=== PATIENT | male | born 1950 | race Caucasian/White ===

== ENCOUNTER 2016-05-27 08:51 | Outpatient (CLI) | payer MEDICARE ==
[2016-05-27 10:06] LABS: ALT (SGPT) 13 U/L (0-55); AST (SGOT) 19 U/L (5-34); Albumin 4.3 g/dL (3.4-4.8); Alkaline Phosphatase 69 U/L (40-150); Anion Gap 18 mmol/L (10-20); BUN (Urea Nitrogen) 18 mg/dL (8.4-25.7); Bilirubin, Total 1.1 mg/dL (0.2-1.2); Calc. Creatinine Clearance 0 mL/min (70-130); Calcium 9.6 mg/dL (7.8-10.44); Carbon Dioxide 26 mmol/L (23-31); Chloride 102 mmol/L (98-107); Cholesterol 133 mg/dL (< 200 Desired); Estimated GFR-MDRD 74; Glucose 108 mg/dL (80-115); HDL Cholesterol 60 mg/dL (>60 Neg Risk); LDL Cholesterol, Calculated 66 mg/dL; Potassium 3.8 mmol/L (3.5-5.1); Protein, Total 7.3 g/dL (5.8-8.1); Sodium 142 mmol/L (136-145); Triglycerides 33 mg/dL (Less than 150)
[2016-05-30 17:25] LABS: Cardiac Risk 2.2 (Less than 4.5); Hemoglobin A1c 5.7 % (4.0-6.0)
== END 2016-05-27 08:52 | disposition home or self-care (01) ==
LOC: MADLAB 08:51
PROVIDERS: ATTEND Family Medicine
DX: E11.9 Type 2 diabetes mellitus without complications (principal)
CPT/HCPCS: 36415; 80053; 80061; 83036

== ENCOUNTER 2016-05-29 17:23 | Emergency (ER) | payer MEDICARE ==
[2016-05-29 17:51] LABS: #Basophils 0.1 thou/uL (0.0-0.2); #Eosinphils 0.2 thou/uL (0.0-0.7); #Lymphocytes 1.5 thou/uL (1.20-3.40); #Monocytes 0.7 thou/uL (0.11-0.59); #Neutrophils 6.8 thou/uL (1.40-6.50); %Basophils 1.1 % (0.0-1.0); %Eosinophils 1.8 % (0.0-10.0); %Lymphocytes 15.8 % (21.0-51.0); %Monocytes 7.4 % (0.0-10.0); %Neutrophils 73.9 % (42.0-75.0); Hemoglobin 13.6 g/dL (14.0-18.0); Mean Corpuscular HGB CONC 33.5 g/dL (32.0-36.0); Mean Corpuscular Hemoglobin 28.4 pg (27.0-31.0); Mean Corpuscular Volume 84.9 fl (80.0-94.0); Mean Platelet Volume 7.9 fL (7.4-10.4); Platelet Count 272 thou/uL (130-400); RBC Distribution Width 13.4 % (11.5-14.5); Red Blood Cell (RBC) Count 4.77 mill/uL (4.70-6.10); White Blood Cell (WBC) Count 9.2 thou/uL (4.8-10.8)
[2016-05-29 17:52] LABS: INR-International Normal Ratio 1.1; PTT 32.5 SEC (22.9-36.1); Prothrombin Time 14.3 SEC (12.0-14.7)
[2016-05-29 18:01] LABS: ALT (SGPT) 14 U/L (0-55); AST (SGOT) 22 U/L (5-34); Albumin 4.3 g/dL (3.4-4.8); Alkaline Phosphatase 86 U/L (40-150); Anion Gap 18 mmol/L (10-20); BUN (Urea Nitrogen) 27 mg/dL (8.4-25.7); Bilirubin, Total 0.7 mg/dL (0.2-1.2); Calc. Creatinine Clearance 0 mL/min (70-130); Calcium 9.6 mg/dL (7.8-10.44); Carbon Dioxide 25 mmol/L (23-31); Chloride 102 mmol/L (98-107); Estimated GFR-MDRD 49; Globulin 2.9 g/dL (2.4-3.5); Glucose 107 mg/dL (80-115); Potassium 3.9 mmol/L (3.5-5.1); Protein, Total 7.2 g/dL (5.8-8.1); Sodium 141 mmol/L (136-145)
[2016-05-29 18:06] LABS: CKMB 2.7 ng/mL (0-6.6); Troponin I Less than 0.010 ng/mL (< 0.028)
--- NOTE | 2016-05-29 18:55 | ERRECORD ---
[facility] EMERGENCY RECORD HPI GENERAL CHIEF COMPLAINT: Patient presents for evaluation of heart rate slow per pcp; went to pcp today for evaluation of blood pressure. had asymptomatic bradycardia per Dr. Moseley; sent to er. (17:43 SHAN) Patient presents for evaluation of pt went to see pcp today for routine f/u for htn and doc noted hr in the 30's. pt is in a.flutter w/ variable hr from 32 to 60. term flutter is new to pt. also. pt has no sx. no pain or sob or dizziness. (18:04 LLDO) HISTORIAN: History provided by patient, History provided by patient's caregiver, is bystolic 10 daily, Cardizem 180 er daily, and lisinopril 20 mg daily; simvastatin, aspirin. (17:43 SHAN) MECHANISM OF INJURY: Unknown mechanism, pt is on Cardizem and bystolic. (18:04 LLDO) LOCATION: Symptoms are generalized. (18:04 LLDO) QUALITY: patient w/o symptoms. (17:43 SHAN) denies pain or other sx. (18:04 LLDO) TIME COURSE: Patient unable to describe onset of symptoms. (18:04 LLDO) ASSOCIATED WITH: No associated symptoms. (17:43 SHAN) No associated symptoms. (18:04 LLDO) EXACERBATED BY: Patient's condition exacerbated by nothing. (18:04 LLDO) RELIEVED BY: Patient's condition relieved by nothing. (18:04 LLDO) ROS CONSTITUTIONAL: Negative constitutional review of systems, Historian denies chills, denies fever. (17:46 SHAN) Negative constitutional review of systems. (18:12 LLDO) EYES: Negative eye review of systems. (17:46 SHAN) ENT: Negative ears, nose, throat review of systems. (17:46 SHAN) CARDIOVASCULAR: Negative cardiovascular review of systems, Historian denies chest pain, denies palpitations. (17:46 SHAN) RESPIRATORY: Negative respiratory review of systems, Historian denies cough, denies shortness of breath. (17:46 SHAN) GI: Negative gastrointestinal review of systems, Historian denies abdominal pain, denies constipation, denies diarrhea. (17:46 SHAN) MUSCULOSKELETAL: Negative musculoskeletal review of systems. (17:46 SHAN) SKIN: Negative skin review of systems. (17:46 SHAN) NEUROLOGIC: Negative neurologic review of systems. (17:46 SHAN) ENDOCRINE: Negative endocrine review of systems. (17:46 SHAN) HEMO/LYMPHATIC: Normal hematologic/lymphatic system review. (17:46 SHAN) PSYCHIATRIC: Negative psychiatric review of systems. (17:46 SHAN) NOTES: All other ROS is negative except as listed in HPI. (17:46 SHAN) All systems reviewed, negative except as described above. (18:12 LLDO) &a-1R&a+25V*p+0X*l2152K*c202B*c15G*c2P*p-0X&a-25V&a+1R Name: James Holt : 1950 M66 MedRec: [id number] AcctNum: [id number] Prepared: SunMay 29, 2016 19:39 by Interface Page 1 of 4 pMD [facility] EMERGENCY RECORD PAST MEDICAL HISTORY MEDICAL HISTORY: Past medical history includes history of diabetes, Type II, Past medical history includes history of hypertension, which has been treated. (17:41 SFRE) MALE SURGICAL HISTORY: Surgical history of appendectomy. (17:51 SFRE) PSYCHIATRIC HISTORY: No previous psychiatric history. (17:51 SFRE) SOCIAL HISTORY: Patient denies alcohol use, Patient denies drug use, Patient has no smoking history. (17:51 SFRE) NOTES: I have reviewed and agree with the PMH/PSxH/FamHx/SocHx obtained by the nurse. (17:46 SHAN) Nursing records reviewed, Agree with nursing records, Medication list reviewed. (18:16 LLDO) KNOWN ALLERGIES No Known Drug Allergies CURRENT MEDICATIONS Cardizem: TABLET : Strength - 120 mg : ORAL Patient Dose: 180 mg Oral once a day. (17:43 SFRE) simvastatin: TABLET : Strength - 5 mg : ORAL Patient Dose: Unknown. (17:44 SFRE) Bystolic: TABLET : Strength - 10 mg : ORAL Patient Dose: Unknown. (17:44 SFRE) lisinopril: TABLET : Strength - 20 mg : ORAL Patient Dose: Unknown. (17:46 SFRE) VITAL SIGNS VITAL SIGNS: BP: 162/74, Pulse: 33, Resp: 14, Pain: 0, O2 sat: 96 on Room Air, Time: 05/29/2016 17:34. (17:34 SFRE) Temp: 98.1 (Tympanic), Time: 05/29/2016 17:39. (17:39 SFRE) BP: 176/75, Pulse: 45, Resp: 18, Temp: 97.7, Pain: 0, O2 sat: 96 on RA, Time: 05/29/2016 18:47. (18:47 SFRE) BP: 191/79, Pulse: 68, Resp: 20, Pain: 0, O2 sat: 98 on ra, Time: 05/29/2016 19:36. (19:36 BGAL) PHYSICAL EXAM CONSTITUTIONAL: Vital signs reviewed, Patient appears non toxic, Patient alert and oriented to person, place and time, Pt is in no apparent distress. (17:46 SHAN) Vital signs reviewed, Patient afebrile, Pulse, see hpi, Blood pressure, BP ELEVATED, Respiratory rate normal, Patient appears non toxic, Patient appears pain free, Patient alert and oriented to person, place and time. &a-1R&a+25V*p+0X*w3711I*c202B*c15G*c2P*p-0X&a-25V&a+1R Name: James Holt : 1950 M66 MedRec: [id number] AcctNum: [id number] Prepared: SunMay 29, 2016 19:39 by Interface Page 2 of 4 pMD [facility] EMERGENCY RECORD (18:12 LLDO) HEAD: Head exam included findings of head atraumatic, normocephalic. (17:46 SHAN) EYES: Eye exam included findings of eyelids normal to inspection, Pupils equally round and reactive to light, Extraocular muscles intact. (17:46 SHAN) ENT: ENT exam normal, Nose exam normal, no nasal deformity, no bleeding from nares, Pharynx exam normal, Mouth exam normal, mucous membranes moist. (17:46 SHAN) NECK: Neck exam included findings of normal range of motion, Trachea midline. (17:46 SHAN) RESPIRATORY CHEST: Respiratory and chest exam normal, Breath sounds clear, No wheezing, No rales, Chest exam included findings of chest movement symmetrical, Chest expansion equal. (17:46 SHAN) CARDIOVASCULAR: atrial flutter with rate of about 40. (17:46 SHAN) Cardiovascular exam included findings of, rate bradycardic, rhythm irregularly irregular, rate extremely variable, running from 28 to 62, Heart sounds with, systolic murmur present, grade 2/6. (18:12 LLDO) ABDOMEN MALE: Abdominal exam included findings of abdomen nontender, Bowel sounds normal, no mass, no pulsatile masses, no peritoneal signs, no rigidity, no guarding, no rebound. (17:46 SHAN) BACK: Back exam included findings of normal inspection, range of motion normal, no costovertebral angle tenderness. (17:46 SHAN) UPPER EXTREMITY: Upper extremity exam included findings of inspection normal, Range of motion normal. (17:46 SHAN) LOWER EXTREMITY: Lower extremity exam included findings of inspection abnormal, Range of motion normal, 2 to 3 plus edema and chronic skin excoriatiations present. (17:46 SHAN) NEURO: Neuro exam findings include patient oriented to person, place and time, Speech normal, no focal motor deficits, no focal sensory deficits. (17:46 SHAN) SKIN: Skin exam included findings of skin warm, dry, and normal in color. (17:46 SHAN) LYMPHATIC: Lymphatic exam normal. (17:46 SHAN) PSYCHIATRIC: Psychiatric exam included findings of patient oriented to person place and time, Normal affect. (17:46 SHAN) DOCTOR NOTES TEXT: Adult male with hypertension and diabetes (recently off metformin); sent to er from providers office due to slow heart rate; is on bystolic and Cardizem and other meds. Patient denies cardiac problems in past or any knowledge or arrhythmia. (17:47 SHAN) accepted by dr tilley for [facility]. (18:42 LLDO) once more I talked at length to pt and repeatedly emphasized the dangers of not having his prob managed now. I believe he fully understands the risks of but has made up his mind to leave ama. &a-1R&a+25V*p+0X*r1765X*c202B*c15G*c2P*p-0X&a-25V&a+1R Name: James Holt : 1950 M66 MedRec: [id number] AcctNum: [id number] Prepared: SunMay 29, 2016 19:39 by Interface Page 3 of 4 pMD [facility] EMERGENCY RECORD nothing I have said has moved his thinking at all. (19:25 LLDO) SIGN OUT: Patient signed out to, Dr. Dr. Nelson. (18:00 MANDY) PATIENT PLAN: The patient requires a transfer and will be transferred. (18:42 LLDO) PROBLEM LIST No recorded problems DIAGNOSIS (18:45 LLDO) FINAL: PRIMARY: Atrial Flutter, ADDITIONAL: Bradycardia, Hypertension, Type 2 Diabetes mellitus (NIDDM) - controlled. PRESCRIPTION No recorded prescriptions DISPOSITION PATIENT: Disposition Type: Transfer, Disposition: Transfer to [facility]. (18:43 LLDO) Disposition Type: Eloped, Disposition: Against Medical Advice. (19:29 LLDO) Patient left the department. (19:37 BGAL) Downs: TE=MORENA Coburn, Dalia MATTHEWS=MD Leslie, Louis WRIGHT=MORENA Linares, Eloisa GALVAN=MD Ezra, Jesus &a-1R&a+25V*p+0X*l7832I*c202B*c15G*c2P*p-0X&a-25V&a+1R Name: James Holt : 1950 M66 MedRec: [id number] AcctNum: [id number] Prepared: SunMay 29, 2016 19:39 by Interface Page 4 of 4 pMD MTDD
--- NOTE | 2016-05-29 19:05 | PICIS ---
[facility] EMERGENCY RECORD COMMUNICATIONS (18:50 AGAN) COMMUNICATIONS: Notes: 1850: Patient is accepted for transfer to [facility]... patient firmly refusing to transfer and is wanting to leave for home. Risks including but not limited "he can tonight" stressed. Patient still is refusing to transfer. He is AAOx3, multiple nurses and health professionals tried to talk to the patient to no avail. Dr. Nelson notified. TRIAGE (SunMay 29, 2016 17:39 SFRE) TRIAGE NOTES: SENT FROM DR DELGADO OFFICE WITH LOW HEART RATE. (SunMay 29, 2016 17:39 SFRE) PATIENT: NAME: James Holt, AGE: 66, GENDER: male, : [place] 1950, TIME OF GREET: SunMay 29, 2016 17:23, PREFERRED LANGUAGE: Georgian, ETHNICITY: Not or , ECODE BILLING MAP: [facility], SSN: [id number], Zip Code: [facility], PHONE: , , , PERSON ID: [id number], PCP: MD DANNY, DERICK. (SunMay 29, 2016 17:39 SFRE) KG WEIGHT: 110.22. (17:40 SFRE) COMPLAINT: LOW HEART RATE. (SunMay 29, 2016 17:39 SFRE) ADMISSION: URGENCY: 2 Emergent, ADMISSION SOURCE: Doctor's Office, TRANSPORT: Walk-in, BED: ED -02. (SunMay 29, 2016 17:39 SFRE) ASSESSMENT: Assessment: NAD NOTICED. BROUGHT FROM DR MAGDALENO'S OFFICE VIA W/C, Symptoms began JUST UNION ORGANISER. (17:51 SFRE) PAIN: No complaint of pain. (17:52 SFRE) IMMUNIZATIONS: Flu vaccine not up to date, Tetanus not up to date, Pneumococcal vaccine not up to date. (17:52 SFRE) SIRS SCORING: Heart Rate 30-39 (3), Temp range 96.8-101.1 (0), respiratory rate 12-24 (0), Mental Status altered: no (0), Total SIRS Score 3. (17:52 SFRE) TRIAGE SCREENING: Patient denies suicidal ideation, Patient denies presence of domestic violence. (17:53 SFRE) PROVIDERS: TRIAGE NURSE: Eloisa Linares RN. (SunMay 29, 2016 17:39 SFRE) VITAL SIGNS: BP 162/74, Pulse 33, Resp 14, Pain 0, O2 Sat 96, on Room Air, Time 05/29/2016 17:34. (17:34 SFRE) KNOWN ALLERGIES No Known Drug Allergies CURRENT MEDICATIONS Cardizem: TABLET : Strength - 120 mg : ORAL Patient Dose: 180 mg Oral once a day. (17:43 SFRE) simvastatin: TABLET : Strength - 5 mg : ORAL Patient Dose: Unknown. (17:44 SFRE) &a-1R&a+25V*p+0X*x2086Y*c202B*c15G*c2P*p-0X&a-25V&a+1R Name: James Holt : 1950 M66 MedRec: [id number] AcctNum: [id number] Prepared: SunMay 29, 2016 19:39 by Interface Page 1 of 10 pMD [facility] EMERGENCY RECORD Bystolic: TABLET : Strength - 10 mg : ORAL Patient Dose: Unknown. (17:44 SFRE) lisinopril: TABLET : Strength - 20 mg : ORAL Patient Dose: Unknown. (17:46 SFRE) VITAL SIGNS VITAL SIGNS: BP: 162/74, Pulse: 33, Resp: 14, Pain: 0, O2 sat: 96 on Room Air, Time: 05/29/2016 17:34. (17:34 SFRE) Temp: 98.1 (Tympanic), Time: 05/29/2016 17:39. (17:39 SFRE) BP: 176/75, Pulse: 45, Resp: 18, Temp: 97.7, Pain: 0, O2 sat: 96 on RA, Time: 05/29/2016 18:47. (18:47 SFRE) BP: 191/79, Pulse: 68, Resp: 20, Pain: 0, O2 sat: 98 on ra, Time: 05/29/2016 19:36. (19:36 BGAL) NURSING ASSESSMENT: CARDIOVASCULAR CONSTITUTIONAL: Patient arrives, via hospital wheelchair, History obtained from, DR DELGADO SENT FROM OFFICE, Patient appears comfortable, Patient cooperative, Patient alert, Oriented to person, place and time, Skin warm, Skin dry, Skin normal in color, Mucous membranes pink, Mucous membranes moist, Patient is well-groomed, Patient complains of BRADYCARDIA. (17:53 SFRE) Patient arrives, via personal wheelchair, History obtained from, DR DELGADO SENT FROM OFFICE, Patient appears comfortable, Patient cooperative, Patient alert, Oriented to person, place and time, Skin warm, Skin dry, Skin normal in color, Mucous membranes pink, Mucous membranes moist, Patient is well-groomed, Patient complains of BRADYCARDIA, PATIENT IS ASYMPTOMATIC. (18:25 SFRE) PAIN: Patient rates pain as 0 out of 10. (17:53 SFRE) No sudden onset of pain. (18:25 SFRE) CARDIOVASCULAR: Cardiovascular assessment findings include heart rate, bradycardic, irregular, Rate 33, Heart rhythm, atrial flutter, No associated diaphoresis, no associated dyspnea, no associated dizziness, Associated with, +3 edema to the lower extremities, no associated palpitations, no associated paresthesias, no associated syncopal episode, no associated weakness. (17:53 SFRE) Cardiovascular assessment findings include heart rate, bradycardic, Rate 33, Heart rhythm, atrial flutter, No associated diaphoresis, no associated dyspnea, no associated dizziness, no associated edema, no associated palpitations, no associated paresthesias, no associated syncopal episode, no associated weakness. (18:25 SFRE) RESPIRATORY/CHEST: Breath sounds clear, Respiratory assessment findings include respiratory effort easy, Respirations regular, Conversing normally, Neck and chest exam findings include trachea &a-1R&a+25V*p+0X*l1989P*c202B*c15G*c2P*p-0X&a-25V&a+1R Name: James Holt : 1950 M66 MedRec: [id number] AcctNum: [id number] Prepared: SunMay 29, 2016 19:39 by Interface Page 2 of 10 pMD [facility] EMERGENCY RECORD midline, Chest expansion equal, Chest movement symmetrical, no signs of distress, no associated cough noted, no associated fever. (17:53 SFRE) Breath sounds clear, Respiratory assessment findings include respiratory effort easy, Respirations regular, Conversing normally, Neck and chest exam findings include trachea midline, Chest expansion equal, Chest movement symmetrical, no signs of distress. (18:25 SFRE) SAFETY: Side rails up, Cart/Stretcher in lowest position, Call light within reach, Hospital ID band on, Notes: PATIENT REPORTS HE JUST WENT TO DOCTOR FOR A MEDICATION REFILL. (17:53 SFRE) Side rails up, Cart/Stretcher in lowest position, Call light within reach, Hospital ID band on. (18:25 SFRE) NURSING PROCEDURE: ELECTRIC INSTALLER (18:27 SFRE) ELECTRIC INSTALLER: Cardiac monitoring indicated for BRADYCARDIA, Patient placed on asian art curator, Heart rate: 33, showing atrial flutter, without ectopy, with no ST segment changes, Patient placed on non-invasive blood pressure monitor, Patient placed on continuous pulse oximetry, Adult/pediatric oxisensor applied, Oxygen saturation 96%. NURSING PROCEDURE: DISCHARGE NOTE (19:36 BGAL) DISCHARGE: Patient signed out against medical advice, ambulating without assistance, driving self, unaccompanied. BELONGINGS: Belongings and valuables with patient at time of discharge include:, Belongings remain with patient, Valuables remain with patient. VITAL SIGNS: BP: 191, / 79, Pulse: 68, Resp: 20, Pain: 0, O2 sat: 98, on: ra. NURSING PROCEDURE: EKG CHART (17:39 SFRE) EKG: EKG indicated for complaint of an irregular heart beat, 12 lead EKG performed on the left chest, done by MORENA DEE, first EKG. FOLLOW-UP: After procedure, EKG for interpretation given to Dr. RIVERA/RAY. NURSING PROCEDURE: IV IV SITE 1: IV therapy indicated for medication administration, IV established, to the left antecubital, using an 18 gauge catheter, in one attempt, Saline lock established, Flushed with normal saline (mls): 5CC, Labs drawn at time of placement, labeled in the presence of the patient and sent to lab. (18:24 SFRE) FOLLOW-UP SITE 1: After procedure, no drainage at IV site, After procedure, no swelling at IV site, After procedure, no redness at IV site. (18:25 SFRE) IV discontinued, due to patient being discharged, catheter intact, Notes: 2X2 APPLIED AND SECURED WITH TAPE. BLEEDING CONTROLLED. (19:36 BGAL) NURSING PROCEDURE: NURSE NOTES &a-1R&a+25V*p+0X*o0654F*c202B*c15G*c2P*p-0X&a-25V&a+1R Name: James Holt : 1950 M66 MedRec: [id number] AcctNum: [id number] Prepared: SunMay 29, 2016 19:39 by Interface Page 3 of 10 pMD [facility] EMERGENCY RECORD NURSES NOTES: Notes: PATIENT IS NOW REFUSING TO BE TRANSFERRED. (18:55 SFRE) Shift change report given, to MORENA WISE, Provided opportunity to answer questions. (18:55 SFRE) Notes: Went to obtain consent for transfer. Patient refused to be transferred to [facility] and stated he wanted to go home. Discussed the risks at great length with the patient, who stated "I feel fine, I am just going to go home. I would have never come here if I knew that you all were gonna do all this" Explained the risks such as syncope and collapse and , which again the patient stated he did not want to be admitted. Notified the house sup. (18:59 BGAL) NURSING PROCEDURE: TRANSFER (18:47 SFRE) TRANSFER: Reason for transfer need for specialized care, Diagnosis: ATRIAL FLUTTER, Accepting institution: [facility], Accepting physician: LUCRETIA, Referring physician: RAY, Transported by urgent ambulance, accompanied by emergency medical services personnel, Report called to receiving facility, MORENA WATSON, Bed assigned ON ARRIVAL, Summary of Care printed, Copy of patient record prepared for receiving facility, Copy of diagnostic studies, Medication reconciliation form prepared and sent to receiving facility, Patient consent for transfer signed. EQUIPMENT WITH PATIENT: Equipment with patient at time of transfer asian art curator, Saline lock intact and patent at time of transfer. VITAL SIGNS: BP: 176, / 75, Pulse: 45, Resp: 18, Temp: 97.7, Pain: 0, O2 sat: 96, on: RA. ORDER DETAILS Order Name: B type Natriuretic Peptide, Status: Active, Time: 17:40 05/29/2016, User: MANDY, - Ordered for: MD Rivera Stanley, - Entered by: MD Rivera Stanley - SunMay 29, 2016 17:40, - Quantity: 1, Order Name: ELECTRIC INSTALLER ED, Status: Done, Time: 17:46 05/29/2016, User: KYLE, - Ordered for: MD Rivera Stanley, - Entered by: MD Rivera Stanley - Mon May 29, 2016 17:40, - Quantity: 1, Order Name: Cardiac Profile w/CKMB & Troponin - I, Status: Active, Time: 17:40 05/29/2016, User: MANDY, - Ordered for: MD Rivera Stanley, - Entered by: MD Rivera Stanley - Mon May 29, 2016 17:40, - Quantity: 1, Order Name: CBC with Differential, Status: Active, Time: 17:40 05/29/2016, User: MANDY, - Ordered for: MD Rivera Stanley, - Entered by: MD Rivera Stanley - Mon May 29, 2016 17:40, - Quantity: 1, &a-1R&a+25V*p+0X*o4084D*c202B*c15G*c2P*p-0X&a-25V&a+1R Name: James Holt : 1950 M66 MedRec: [id number] AcctNum: [id number] Prepared: SunMay 29, 2016 19:39 by Interface Page 4 of 10 D [facility] EMERGENCY RECORD Order Name: Comprehensive Metabolic Panel, Status: Active, Time: 17:40 05/29/2016, User: MANDY, - Ordered for: MD Rivera Stanley, - Entered by: MD Rivera Stanley - Mon May 29, 2016 17:40, - Quantity: 1, Order Name: EKG 12 Lead in Emergency Room, Status: Active, Time: 17:40 05/29/2016, User: MANDY, - Ordered for: MD Rivera Stanley, - Entered by: MD Rivera Stanley - Mon May 29, 2016 17:40, - Quantity: 1, Order Name: Protime with INR, Status: Active, Time: 17:40 05/29/2016, User: MANDY, - Ordered for: MD Rivera Stanley, - Entered by: MD Rivera Stanley - Mon May 29, 2016 17:40, - Quantity: 1, Order Name: PTT, Status: Active, Time: 17:40 05/29/2016, User: MANDY, - Ordered for: MD Rivera Stanley, - Entered by: MD Rivera Stanley - Mon May 29, 2016 17:40, - Quantity: 1, Order Name: Thyroid Stimulating Hormone, Status: Active, Time: 17:41 05/29/2016, User: MANDY, - Ordered for: MD Rivera Stanley, - Entered by: MD Rivera Stanley - Mon May 29, 2016 17:41, - Quantity: 1, Order Name: true t4, Status: Canceled, Time: 17:46 05/29/2016, User: KYLE, - Ordered for: MD Rivera Stanley, - Entered by: MD Rivera Stanley - Mon May 29, 2016 17:42, - Quantity: 1, Order Name: XR Chest 1 View Portable, Status: Active, Time: 17:40 05/29/2016, User: MANDY, - Ordered for: MD Rivera Stanley, - Entered by: MD Rivera Stanley - Mon May 29, 2016 17:40, - Quantity: 1. HPI GENERAL CHIEF COMPLAINT: Patient presents for evaluation of heart rate slow per pcp; went to pcp today for evaluation of blood pressure. had asymptomatic bradycardia per Dr. Moseley; sent to er. (17:43 SHAN) Patient presents for evaluation of pt went to see pcp today for routine f/u for htn and doc noted hr in the 30's. pt is in a.flutter w/ variable hr from 32 to 60. term flutter is new to pt. also. pt has no sx. no pain or sob or dizziness. (18:04 LLDO) HISTORIAN: History provided by patient, History provided by patient's caregiver, is bystolic 10 daily, Cardizem 180 er daily, and lisinopril 20 mg daily; simvastatin, aspirin. (17:43 MANDY) MECHANISM OF INJURY: Unknown mechanism, pt is on Cardizem and bystolic. (18:04 LLDO) &a-1R&a+25V*p+0X*j8055J*c202B*c15G*c2P*p-0X&a-25V&a+1R Name: James Holt : 1950 M66 MedRec: [id number] AcctNum: [id number] Prepared: SunMay 29, 2016 19:39 by Interface Page 5 of 10 pMD [facility] EMERGENCY RECORD LOCATION: Symptoms are generalized. (18:04 LLDO) QUALITY: patient w/o symptoms. (17:43 SHAN) denies pain or other sx. (18:04 LLDO) TIME COURSE: Patient unable to describe onset of symptoms. (18:04 LLDO) ASSOCIATED WITH: No associated symptoms. (17:43 SHAN) No associated symptoms. (18:04 LLDO) EXACERBATED BY: Patient's condition exacerbated by nothing. (18:04 LLDO) RELIEVED BY: Patient's condition relieved by nothing. (18:04 LLDO) ROS CONSTITUTIONAL: Negative constitutional review of systems, Historian denies chills, denies fever. (17:46 SHAN) Negative constitutional review of systems. (18:12 LLDO) EYES: Negative eye review of systems. (17:46 SHAN) ENT: Negative ears, nose, throat review of systems. (17:46 SHAN) CARDIOVASCULAR: Negative cardiovascular review of systems, Historian denies chest pain, denies palpitations. (17:46 SHAN) RESPIRATORY: Negative respiratory review of systems, Historian denies cough, denies shortness of breath. (17:46 SHAN) GI: Negative gastrointestinal review of systems, Historian denies abdominal pain, denies constipation, denies diarrhea. (17:46 SHAN) MUSCULOSKELETAL: Negative musculoskeletal review of systems. (17:46 SHAN) SKIN: Negative skin review of systems. (17:46 SHAN) NEUROLOGIC: Negative neurologic review of systems. (17:46 SHAN) ENDOCRINE: Negative endocrine review of systems. (17:46 SHAN) HEMO/LYMPHATIC: Normal hematologic/lymphatic system review. (17:46 SHAN) PSYCHIATRIC: Negative psychiatric review of systems. (17:46 SHAN) NOTES: All other ROS is negative except as listed in HPI. (17:46 SHAN) All systems reviewed, negative except as described above. (18:12 LLDO) PAST MEDICAL HISTORY MEDICAL HISTORY: Past medical history includes history of diabetes, Type II, Past medical history includes history of hypertension, which has been treated. (17:41 SFRE) MALE SURGICAL HISTORY: Surgical history of appendectomy. (17:51 SFRE) PSYCHIATRIC HISTORY: No previous psychiatric history. (17:51 SFRE) SOCIAL HISTORY: Patient denies alcohol use, Patient denies drug use, Patient has no smoking history. (17:51 SFRE) NOTES: I have reviewed and agree with the PMH/PSxH/FamHx/SocHx obtained by the nurse. (17:46 SHAN) Nursing records reviewed, Agree with nursing records, Medication list reviewed. (18:16 LLDO) &a-1R&a+25V*p+0X*v3266V*c202B*c15G*c2P*p-0X&a-25V&a+1R Name: James Holt : 1950 M66 MedRec: [id number] AcctNum: [id number] Prepared: SunMay 29, 2016 19:39 by Interface Page 6 of 10 pMD [facility] EMERGENCY RECORD PHYSICAL EXAM CONSTITUTIONAL: Vital signs reviewed, Patient appears non toxic, Patient alert and oriented to person, place and time, Pt is in no apparent distress. (17:46 SHAN) Vital signs reviewed, Patient afebrile, Pulse, see hpi, Blood pressure, BP ELEVATED, Respiratory rate normal, Patient appears non toxic, Patient appears pain free, Patient alert and oriented to person, place and time. (18:12 LLDO) HEAD: Head exam included findings of head atraumatic, normocephalic. (17:46 SHAN) EYES: Eye exam included findings of eyelids normal to inspection, Pupils equally round and reactive to light, Extraocular muscles intact. (17:46 SHAN) ENT: ENT exam normal, Nose exam normal, no nasal deformity, no bleeding from nares, Pharynx exam normal, Mouth exam normal, mucous membranes moist. (17:46 SHAN) NECK: Neck exam included findings of normal range of motion, Trachea midline. (17:46 SHAN) RESPIRATORY CHEST: Respiratory and chest exam normal, Breath sounds clear, No wheezing, No rales, Chest exam included findings of chest movement symmetrical, Chest expansion equal. (17:46 SHAN) CARDIOVASCULAR: atrial flutter with rate of about 40. (17:46 SHAN) Cardiovascular exam included findings of, rate bradycardic, rhythm irregularly irregular, rate extremely variable, running from 28 to 62, Heart sounds with, systolic murmur present, grade 2/6. (18:12 LLDO) ABDOMEN MALE: Abdominal exam included findings of abdomen nontender, Bowel sounds normal, no mass, no pulsatile masses, no peritoneal signs, no rigidity, no guarding, no rebound. (17:46 SHAN) BACK: Back exam included findings of normal inspection, range of motion normal, no costovertebral angle tenderness. (17:46 SHAN) UPPER EXTREMITY: Upper extremity exam included findings of inspection normal, Range of motion normal. (17:46 SHAN) LOWER EXTREMITY: Lower extremity exam included findings of inspection abnormal, Range of motion normal, 2 to 3 plus edema and chronic skin excoriatiations present. (17:46 SHAN) NEURO: Neuro exam findings include patient oriented to person, place and time, Speech normal, no focal motor deficits, no focal sensory deficits. (17:46 SHAN) SKIN: Skin exam included findings of skin warm, dry, and normal in color. (17:46 SHAN) LYMPHATIC: Lymphatic exam normal. (17:46 SHAN) PSYCHIATRIC: Psychiatric exam included findings of patient oriented to person place and time, Normal affect. (17:46 SHAN) EVENTS &a-1R&a+25V*p+0X*d9638H*c202B*c15G*c2P*p-0X&a-25V&a+1R Name: James Holt : 1950 M66 MedRec: [id number] AcctNum: [id number] Prepared: SunMay 29, 2016 19:39 by Interface Page 7 of 10 pMD [facility] EMERGENCY RECORD TRANSFER: Triage to Emergency Main ED -02. (SunMay 29, 2016 17:39 SFRE) Removed from Emergency Main ED -02. (19:37 BGAL) DOCTOR NOTES TEXT: Adult male with hypertension and diabetes (recently off metformin); sent to er from providers office due to slow heart rate; is on bystolic and Cardizem and other meds. Patient denies cardiac problems in past or any knowledge or arrhythmia. (17:47 SHAN) accepted by dr tilley for [facility]. (18:42 LLDO) once more I talked at length to pt and repeatedly emphasized the dangers of not having his prob managed now. I believe he fully understands the risks of but has made up his mind to leave ama. nothing I have said has moved his thinking at all. (19:25 LLDO) SIGN OUT: Patient signed out to, Dr. Dr. Nelson. (18:00 SHAN) PATIENT PLAN: The patient requires a transfer and will be transferred. (18:42 LLDO) PROBLEM LIST No recorded problems DIAGNOSIS (18:45 LLDO) FINAL: PRIMARY: Atrial Flutter, ADDITIONAL: Bradycardia, Hypertension, Type 2 Diabetes mellitus (NIDDM) - controlled. DISPOSITION PATIENT: Disposition Type: Transfer, Disposition: Transfer to [facility]. (18:43 LLDO) Disposition Type: Eloped, Disposition: Against Medical Advice. (19:29 LLDO) Patient left the department. (19:37 BGAL) PRESCRIPTION No recorded prescriptions IMAGING SBAR FROM V: Image captured from scanner. (17:47 SFRE) *EKG: Image captured from scanner. (17:47 SFRE) *DISCHARGE INSTRUCTIONS RECEIPT: Image captured from scanner. (18:50 SFRE) *SUPPLY CHARGE SHEET: Image captured from scanner. (18:51 SFRE) ADMIN DIGITAL SIGNATURE: MD Ray, Louis. (18:45 LLDO) MD Nelson Lloyd. (19:29 LLDO) RESULTS (18:34 SFRE) LABORATORY: Thyroid Stimulating Hormone Collection DT: Sun &a-1R&a+25V*p+0X*j9042Z*c202B*c15G*c2P*p-0X&a-25V&a+1R Name: James Holt : 1950 M66 MedRec: [id number] AcctNum: [id number] Prepared: SunMay 29, 2016 19:39 by Interface Page 8 of 10 pMD [facility] EMERGENCY RECORD 2016 17:46, Thyroid Stimulating Hormone 1.3041 uIU/mL, Range (0.35-4.94). B type Natriuretic Peptide Collection DT: SunMay 29, 2016 17:46, *B type Natriuretic Peptide 114.6 - H pg/mL, Range (0-100). Cardiac Profile w/CKMB & TropI Collection DT: SunMay 29, 2016 17:46, CKMB 2.7 ng/mL, Range (0-6.6), Troponin I Less than 0.010 ng/mL, Range (< 0.028), Reference Range , 0.00 - 0.028 ng/mL Negative 0.029 - 0.29 ng/mL , Indeterminate Greater or Equal to 0.3 ng/mL Strongly suggests MS , . Comprehensive Metabolic Panel Collection DT: SunMay 29, 2016 17:46, Sodium 141 mmol/L, Range (136-145), Potassium 3.9 mmol/L, Range (3.5-5.1), Chloride 102 mmol/L, Range (98-107), Carbon Dioxide 25 mmol/L, Range (23-31), Anion Gap 18 mmol/L, Range (10-20), *BUN (Urea Nitrogen) 27 - H mg/dL, Range (8.4-25.7), *Creatinine 1.45 - H mg/dL, Range (0.7-1.3), Estimated GFR-MDRD 49 , Reference Range for Estimated GFR: Greater than 90, mL/min/1.73 m2 NOTE: The MDRD equation has not been validated for use, with the elderly (over 70 years of age), women, patients with, serious comorbid condition or persons with extremes of body size, muscle, mass, or nutritional status. , Glucose 107 mg/dL, Range (80-115), Calcium 9.6 mg/dL, Range (7.8-10.44), Bilirubin, Total 0.7 mg/dL, Range (0.2-1.2), Protein, Total 7.2 g/dL, Range (5.8-8.1), NOTE: Plasma values are generally 0.3 to 0.5 g/dL higher than serum values, due to the presence of fibrinogen. , Albumin 4.3 g/dL, Range (3.4-4.8), Globulin 2.9 g/dL, Range (2.4-3.5), Alb/Glob Ratio 1.5 g/dL, Range (1.2-2.2), Alkaline Phosphatase 86 U/L, Range (40-150), AST (SGOT) 22 U/L, Range (5-34), ALT (SGPT) 14 U/L, Range (0-55). PTT Collection DT: SunMay 29, 2016 17:46, See comment below , Anticoagulant? NONE Medical Necessity SUSPECT COAGULOPATHY , PTT 32.5 SEC, Range (22.9-36.1). Protime with INR Collection DT: SunMay 29, 2016 17:46, See comment below , Anticoagulant? NONE Medical Necessity SUSPECT COAGULOPATHY , Prothrombin Time 14.3 SEC, Range (12.0-14.7), INR-International Normal Ratio 1.1 , ATTENTION: READ &a-1R&a+25V*p+0X*n3915O*c202B*c15G*c2P*p-0X&a-25V&a+1R Name: James Holt : 1950 M66 MedRec: [id number] AcctNum: [id number] Prepared: SunMay 29, 2016 19:39 by Interface Page 9 of 10 pMD [facility] EMERGENCY RECORD CAREFULLY , The, recommended therapeutic ranges for oral anticoagulant treatments are: , , Low Intensity: 1.5 - 2.0 Moderate Intensity: 2.0, - 3.0 High Intensity (1): 2.5 - 3.5 High, Intensity (2): 3.0 - 4.0 CRITICAL: >, 4.0 . CBC with Differential Collection DT: SunMay 29, 2016 17:46, White Blood Cell (WBC) Count 9.2 thou/uL, Range (4.8-10.8), Red Blood Cell (RBC) Count 4.77 mill/uL, Range (4.70-6.10), *Hemoglobin 13.6 - L g/dL, Range (14.0-18.0), *Hematocrit 40.5 - L %, Range (42.0-52.0), Mean Corpuscular Volume 84.9 fl, Range (80.0-94.0), Mean Corpuscular Hemoglobin 28.4 pg, Range (27.0-31.0), Mean Corpuscular HGB CONC 33.5 g/dL, Range (32.0-36.0), RBC Distribution Width 13.4 %, Range (11.5-14.5), Platelet Count 272 thou/uL, Range (130-400), Mean Platelet Volume 7.9 fL, Range (7.4-10.4), %Neutrophils 73.9 %, Range (42.0-75.0), *%Lymphocytes 15.8 - L %, Range (21.0-51.0), %Monocytes 7.4 %, Range (0.0-10.0), %Eosinophils 1.8 %, Range (0.0-10.0), *%Basophils 1.1 - H %, Range (0.0-1.0), *#Neutrophils 6.8 - H thou/uL, Range (1.40-6.50), #Lymphocytes 1.5 thou/uL, Range (1.20-3.40), *#Monocytes 0.7 - H thou/uL, Range (0.11-0.59), #Eosinphils 0.2 thou/uL, Range (0.0-0.7), #Basophils 0.1 thou/uL, Range (0.0-0.2). Downs: DANIEL=MORENA Renee, Eliseo TIWARI=MORENA Coburn, Dalia MATTHEWS=MD Ray, Louis WRIGHT=MORENA Linares, Eloisa GALVAN=MD Ezra, Jesus &a-1R&a+25V*p+0X*t7981N*c202B*c15G*c2P*p-0X&a-25V&a+1R Name: James Holt : 1950 M66 MedRec: [id number] AcctNum: [id number] Prepared: Cindy May 29, 2016 19:39 by Interface Page 10 of 10 pMShari CADET
--- NOTE | 2016-05-29 20:32 | RAD ---
PORTABLE CHEST: Date: 05-29-16 Provided Clinical History: Arrhythmia FINDINGS: No comparisons. Cardiac silhouette appears enlarged which may be partially on the basis of portable technique. External defibrillator pad overlies the right upper chest and obscures portions of the right lung. Given this limitation, no focal consolidation, pleural fluid, or pneumothorax is appare nt. IMPRESSION: No definite evidence for an acute cardiopulmonary process. If there is persistent clinical concern, follow up PA and lateral views of the chest are recommended. POS: [facility]
== END 2016-05-29 19:35 | disposition left against medical advice (07) ==
LOC: MADERS 17:23
DX: I48.92 Unspecified atrial flutter (principal); I10 Essential (primary) hypertension; E11.9 Type 2 diabetes mellitus without complications
CPT/HCPCS: 71010; 80053; 82553; 83880; 84443; 84484; 85025; 85610; 85730; 93005